=== PATIENT | female | born 1990 | race Caucasian/White ===

== ENCOUNTER 2018-06-03 08:21 | Day surgery (SDC) | payer MEDICAID ==
[2018-05-27 12:14] LABS: BASOPHILS # (AUTO) 0.1 X10'3 (0-0.2); BASOPHILS % (AUTO) 0.8 % (0-1); EOSINOPHILS # (AUTO) 0.1 X10'3 (0-0.9); EOSINOPHILS % (AUTO) 1.5 % (0-6); LYMPHOCYTES # (AUTO) 1.8 X10'3 (1.1-4.8); MEAN CORPUSCULAR HEMOGLOBIN 30.3 PG (27.0-31.0); MEAN CORPUSCULAR HGB CONC 33.1 g/dL (33.0-36.5); MEAN CORPUSCULAR VOLUME 91.8 FL (78-98); MEAN PLATELET VOLUME 8.2 FL (7.4-10.4); MONOCYTES # (AUTO) 0.7 X10'3 (0-0.9); MONOCYTES % (AUTO) 9.1 % (2-12); NEUTROPHILS # (AUTO) 4.7 X10'3 (1.8-7.7); NEUTROPHILS % (AUTO) 63.6 % (42-75); PRE OP HEMATOCRIT 42.1 % (35.0-45.0); PRE OP HEMOGLOBIN 13.9 g/dL (12.0-16.0); PRE OP PLATELET COUNT 206 X10'3 (140-440); RED BLOOD COUNT 4.59 X10'6 (4.20-5.60); RED CELL DISTRIBUTION WIDTH 13.5 % (11.5-14.5)
[2018-05-27 12:23] LABS: HCG SERUM QL NEGATIVE
[2018-05-27 14:37] LABS: ALBUMIN 3.8 G/DL (3.4-5.0); ALBUMIN/GLOBULIN RATIO 1.1 (1.1-1.5); ALKALINE PHOSPHATASE 58 IU/L (46-116); BLOOD UREA NITROGEN 12 MG/DL (7-18); BUN/CREATININE RATIO 17.6 (6.6-38.0); CHLORIDE 107 MMOL/L (99-107); CREATININE 0.68 MG/DL (0.40-0.90); PRE OP ALT 20 U/L (30-65); PRE OP ANION GAP 5 (8-16); PRE OP AST 15 U/L (10-37); PRE OP BILIRUB, TOTAL 0.9 MG/DL (0.0-1.0); PRE OP GLUCOSE 84 MG/DL (70-104); PRE OP POTASSIUM 3.9 MMOL/L (3.4-5.1); PRE OP SODIUM 141 MMOL/L (135-145); TOTAL CARBON DIOXIDE 28.6 MMOL/L (24-32); TOTAL PROTEIN 7.4 G/DL (6.4-8.2); eGFR > 90 ML/MIN
[2018-06-03] VITALS (8 sets, daily range): BP systolic 100–123; BP diastolic 54–70
[~2018-06-03] VITALS: Ht 170.2 cm; Wt 106.6 kg
[~2018-06-03 08:21] MED LIST: BUPIVAcaine/PF 2.5mg/ml (0.25%) 10ml vial ONE; NO HOME MEDS; cefazolin/dext.iso 2gm/100 ML IV ONE; famotidine 20mg tablet PO ONE; ringers solution, lacted 1,000 ML IV SCH
[2018-06-03] MEDS ORDERED: LIDOcaine 1% 30ml preserv. free vial ONE (09:54)
[2018-06-03] MEDS ORDERED: ringers solution, lacted 1,000 ML IV SCH (10:11)
[2018-06-03] MEDS ORDERED: ondansetron/PF 4mg/2ml inj IV PRN (10:15)
[2018-06-03] MEDS ORDERED: proCHLORperazine 10 MG/2 ml inj IV PRN (10:15)
[2018-06-03] MEDS ORDERED: morphine 4 MG/ML inj SYRINge IV PRN ×2 (10:15)
[2018-06-03] MEDS ORDERED: meperidine/PF 25mg/ml syringe IV PRN ×3 (10:15)
[2018-06-03] MEDS ORDERED: fentaNYL/PF 50MCG/1 ML 2ML syringe ONE (10:23)
[2018-06-03] MEDS ORDERED: ketorolac trometh. 30mg/ml inj. ONE (10:23)
[2018-06-03] MEDS ORDERED: MIDAZolam 5mg/5ml vial ONE (10:24)
[2018-06-03] MEDS ORDERED: propofol 10mg/ml 20ml vial IV ONE (10:42)
--- NOTE | 2018-06-03 11:35 | NUR ---
Received from OR via [facility], accompanied by Anesthesiologist DR HERNANDEZ and report given by Anesthesiologist. 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 PT EMOTIONAL CRYING, UNABLE TO CALM PT, DENIES PAIN. VSS. Addendum: 06/03/18 at 1339 by Silvia Guidry RN Amended: Links added.
== END 2018-06-03 12:45 | disposition home or self-care (01) ==
LOC: PAS 08:21
PROVIDERS: ATTEND Orthopaedic Surgery Hand Surgery
DX: M67.431 Ganglion, right wrist (principal); M65.841 Other synovitis and tenosynovitis, right hand; M65.4 Radial styloid tenosynovitis [de Quervain]; Z87.891 Personal history of nicotine dependence; Z72.89 Other problems related to lifestyle; Z88.8 Allergy status to other drugs, medicaments and biological substances
CPT/HCPCS: 25111; 29844; 36415; 80053; 84703; 85025; A6222; A6449; J0690; J1885; J2175; J2250; J2704; J3010; J3490; A4615; A7000; J7120